=== PATIENT | female | born 1930 | race Caucasian/White ===

== ENCOUNTER 2018-05-02 15:27 | Inpatient (IN) | payer MEDICARE ==
[~2018-05-02] VITALS: Ht 149.9 cm; Wt 63.6 kg
--- NOTE | ~2018-05-02 | PN ---
PATIENT:RAZIA HUERTA MEDICAL RECORD: [id number] LOCATION:[facility] ADMISSION DATE: 05/02/18 PROGRESS NOTE DATE OF SERVICE: 05/06/2018 SUBJECTIVE: The patient's case was discussed with staff. She has no new complaint. OBJECTIVE: The patient was tested by Dr. Lisa Vaughn and found to have a severe level of impairment scoring a total of 4/30 points. This obviously is quite severe. She is completely incapable of living alone or even semi-independently and in my opinion, she requires 24 hours a day supervision. She is going to be monitored with her current medications. ASSESSMENT: No change in diagnoses. PLAN: Current medicines have been reviewed. I am going to start her on Namenda for its cognitive enhancing properties. TRANSINT:[id number] Voice Confirmation ID: [id number] DOCUMENT ID: [id number] FELICIANO CLEMENTE MD at 1236 CC: [id number] DICTATION DATE: 05/06/18 1315 SHIRT FINISHER: 05/06/18 1352 ADM IN [place] [id number] [place] [id number]
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
--- NOTE | ~2018-05-02 | PN ---
PATIENT:RAZIA HUERTA MEDICAL RECORD: [id number] LOCATION:[facility] ADMISSION DATE: 05/02/18 PROGRESS NOTE DATE OF SERVICE: 05/07/2018 SUBJECTIVE: The patient's case was discussed with staff. She has no new complaint. OBJECTIVE: The patient denies intent to harm herself or others. She generally tolerates her medicines well. ASSESSMENT: No change in diagnoses. PLAN: Brief supportive and educational interventions were made. The patient's long-term prognosis is guarded. She has had some paranoid thoughts reported to me. She denies them when I asked about them, but they are being reported by multiple very reliable staff people. Based on this, I am going to start her on a low dose of the antipsychotic medication Trilafon. Her long-term prognosis is guarded. TRANSINT:[id number] Voice Confirmation ID: [id number] DOCUMENT ID: [id number] FELICIANO CLEMENTE MD at 1332 CC: [id number] DICTATION DATE: 05/07/18 1302 PARKING METER ATTENDANT: 05/07/18 1355 ADM IN [facility] [address] [place] [address]
--- NOTE | ~2018-05-02 | PN ---
PATIENT:RAZIA HUETRA MEDICAL RECORD: [id number] LOCATION:[facility]112 ADMISSION DATE: 05/02/18 PROGRESS NOTE DATE OF SERVICE: 05/09/2018 SUBJECTIVE: The patient's case was discussed with staff. She has no new complaint. OBJECTIVE: The patient is in good behavioral control with limited insight about her condition. She tolerates her medicines well. ASSESSMENT: No change in diagnoses. PLAN: Brief supportive and educational interventions were made. I have reviewed the patient's medications, which I will maintain. I anticipate she can be transitioned out of the hospital soon. TRANSINT:[id number] Voice Confirmation ID: [id number] DOCUMENT ID: [id number] FELICIANO CLEMENTE MD at 0908 CC: [id number] DICTATION DATE: 05/09/18 1551 LEADERSHIP DEVELOPMENT INSTRUCTOR: 05/09/18 1622 ADM IN [place] [id number] [place] [id number]
--- NOTE | ~2018-05-02 | PN ---
PATIENT:RAZIA HUERTA MEDICAL RECORD: [id number] LOCATION:[facility]112 ADMISSION DATE: 05/02/18 PROGRESS NOTE DATE OF SERVICE: 05/08/2018 SUBJECTIVE: The patient's case was discussed with staff. She has no new complaint. OBJECTIVE: The patient is in good behavioral control with limited insight about her condition. She generally tolerates her medicines well. ASSESSMENT: No change in diagnoses. PLAN: Current medicines have been reviewed and will be maintained. Long-term prognosis is guarded. TRANSINT:[id number] Voice Confirmation ID: [id number] DOCUMENT ID: [id number] FELICIANO CLEMENTE MD at 1521 CC: [id number] DICTATION DATE: 05/08/18 1402 INTEGRATION SOFTWARE DEVELOPER: 05/08/18 1459 ADM IN [place] [id number] [place] [address]
--- NOTE | ~2018-05-02 | PSY ---
PATIENT NAME:RAZIA HUERTA MEDICAL RECORD: [id number] : [birth year] LOCATION:[facility]6 ADMISSION DATE: 05/02/18 ACCOUNT: [id number] PSYCHIATRIC EVALUATION DATE OF EVALUATION: 05/03/18 IDENTIFYING DATA: The patient is 87 years old and she is admitted to the hospital on a voluntary basis. CHIEF COMPLAINT: Confusion. HISTORY OF PRESENT ILLNESS: The patient is a very nice elderly woman with a history of dementia. She was admitted here through the Emergency Department complaining of her family wanting to take all of her money and she was saying that she was going to kill herself and that she would do so by taking an overdose. She apparently required multiple staff members to calm and restrain her while she was medicated. It is not that she is so strong at 87, it is just that she was so out of control, they did not want her to hurt herself or be hurt and being restrained in the Emergency Department. The patient has a history of psychiatric problems, but it has been limited to mental health and associated with a previous hospitalization here 4 years ago. At that time, the patient was admitted because of depression and she was having suicidal thoughts at that time as well. PAST MEDICAL HISTORY: Significant for diabetes, hypercholesterolemia, and hypertension. PAST PSYCHIATRIC HISTORY: Significant for one previous hospitalization here a few years ago. The patient has no history of drug or alcohol abuse. She has had outpatient treatment for depression. ALLERGIES: MORPHINE. CURRENT MEDICATIONS: Include Glucophage, Lopid, and Norvasc. SOCIAL HISTORY: The patient is . She does have an adult son involved with her care. She has no history of drug or alcohol abuse and functioned reasonably well socially and occupationally. MENTAL STATUS EXAMINATION: The patient is awake, alert, and oriented to person and place, but not to time or situation. Her mood is anxious. Her affect is constricted. Thought processes are circumstantial. Memory, concentration, and abstraction abilities are moderately impaired and she denies any overt thoughts of harming herself or others as well as psychotic symptoms. ASSETS: Supportive family members. LIABILITIES: Limited insight. DIAGNOSTIC IMPRESSION: AXIS I: Senile dementia of the Alzheimer's type with behavioral disturbances. Major depression, moderate severity, recurrent. AXIS II: Deferred. AXIS III: Diabetes and hyperlipidemia. AXIS IV: Moderate stressors. AXIS V: Global assessment of functioning is 35. PLAN: At this time, the patient is admitted to the hospital for a comprehensive medical, psychological, and social evaluation. She will be treated with both mood stabilizing and memory enhancing medications. Her long-term prognosis is guarded. TRANSINT:[id number] Voice Confirmation ID: [id number] DOCUMENT ID: [id number] FELICIANO CLEMENTE MD at 2007 CC: [id number] DICTATION DATE: 05/03/18 1156 ENVELOPE FOLD OPERATOR: 05/03/18 1544 ADM IN [place] [id number] [place] [id number]
--- NOTE | ~2018-05-02 | PN ---
PATIENT:RAZIA HUERTA MEDICAL RECORD: [id number] LOCATION:[facility]112 ADMISSION DATE: 05/02/18 PROGRESS NOTE DATE OF SERVICE: 05/12/2018 SUBJECTIVE: The patient's case was discussed with staff. She has no new complaint. OBJECTIVE: The patient is in good behavioral control with limited insight about her condition. She tolerates her medicines well. ASSESSMENT: No change in diagnoses. PLAN: Current medicines have been reviewed and will be maintained. Her long-term prognosis is guarded. TRANSINT:[id number] Voice Confirmation ID: [id number] DOCUMENT ID: [id number] FELICIANO CLEMENTE MD at 1433 CC: [id number] DICTATION DATE: 05/12/18 1433 WOOD ENGRAVER: 05/12/18 1451 ADM IN [place] [id number] [place] [address]
--- NOTE | ~2018-05-02 | PN ---
PATIENT:RAZIA HUERTA MEDICAL RECORD: [id number] LOCATION:[facility]112 ADMISSION DATE: 05/02/18 PROGRESS NOTE DATE OF SERVICE: 05/05/2018 SUBJECTIVE: The patient's case was discussed with staff. She has no new complaint. OBJECTIVE: The patient is in good behavioral control with limited insight about her condition. She tolerates her medicines well. She is severely impaired cognitively and has had no suicidal threats. ASSESSMENT: No change in diagnoses. PLAN: The patient is sleeping more than I would like. I am going to reduce her Klonopin from 0.25 mg twice daily to 0.25 mg at bedtime. TRANSINT:[id number] Voice Confirmation ID: [id number] DOCUMENT ID: [id number] FELICIANO CLEMENTE MD at 1236 CC: [id number] DICTATION DATE: 05/05/18 1435 FACULTY NEUROPSYCHOLOGIST: 05/05/18 1627 ADM IN [place] [id number] [place] [address]
--- NOTE | ~2018-05-02 | PN ---
PATIENT:RAZIA HUERTA MEDICAL RECORD: [id number] LOCATION:[facility]112 ADMISSION DATE: 05/02/18 PROGRESS NOTE DATE OF SERVICE: 05/10/2018 SUBJECTIVE: The patient's case was discussed with staff. She has no new complaint. OBJECTIVE: The patient is in good behavioral control with limited insight about her condition. ASSESSMENT: No change in diagnoses. PLAN: Brief supportive and educational interventions were made. Long-term prognosis is guarded. TRANSINT:[id number] Voice Confirmation ID: [id number] DOCUMENT ID: [id number] FELICIANO CLEMENTE MD at 1433 CC: [id number] DICTATION DATE: 05/10/18926 WATER TAXI BOAT MATE: 05/10/18 0937 ADM IN [place] [id number] [place] [id number]
--- NOTE | ~2018-05-02 | PN ---
PATIENT:RAZIA HUERTA MEDICAL RECORD: [id number] LOCATION:[facility]112 ADMISSION DATE: 05/02/18 PROGRESS NOTE DATE OF SERVICE: 05/04/2018 SUBJECTIVE: The patient's case was discussed with staff. She has no new complaint. OBJECTIVE: The patient is in good behavioral control with limited insight about her condition. She tolerates her medicines well. ASSESSMENT: No change in diagnoses. PLAN: Brief supportive and educational interventions were made. Long-term prognosis is guarded. TRANSINT:[id number] Voice Confirmation ID: [id number] DOCUMENT ID: [id number] FELICIANO CLEMENTE MD at 1407 CC: [id number] DICTATION DATE: 05/04/18 1131 CUSHION PADDER: 05/04/18 1436 ADM IN [place] [id number] [place] [address]
--- NOTE | ~2018-05-02 | PN ---
PATIENT:RAZIA HUERTA MEDICAL RECORD: [id number] LOCATION:[facility]112 ADMISSION DATE: 05/02/18 PROGRESS NOTE DATE OF SERVICE: 05/13/2018 SUBJECTIVE: The patient's case was discussed with staff. She has no new complaint. OBJECTIVE: The patient denies intent to harm herself or others. Generally tolerates her medicines well. Eye contact is fair. ASSESSMENT: No change in diagnoses. PLAN: Current medicines and therapies have been reviewed and will be maintained. Long-term prognosis is guarded. I anticipate she can be transitioned out of the hospital today. TRANSINT:[id number] Voice Confirmation ID: [id number] DOCUMENT ID: [id number] FELICIANO CLEMENTE MD at 1348 CC: [id number] DICTATION DATE: 05/13/18 1456 FOOD AND NUTRITION PROFESSOR: 05/13/18 1612 DIS IN 05/13/18 [facility] [address] [place] [address]
[~2018-05-02 15:27] MED LIST: ARICEPT10 MG PO; ATIVAN1 MG PO; BAYER CHEWABLE81 MG PO; BUMEX 1 MG TAB1 MG PO; DESERYL100 MG PO; DEXILANT60 MG PO; GLUCOPHAGE500 MG PO; MAG-OX 400 MG400 MG PO; MELATONIN 3 MG1 TAB PO; MIRALAX17 GM PO; NAMENDA5 MG PO; PROTONIX40 MG PO; PROZAC40 MG PO; VITAMIN D31000 UNIT
[2018-05-02 16:13] LABS: BASOPHILS 0.1 % (0-2); EOSINOPHILS 0.6 % (0-7); HEMATOCRIT 40.8 % (36.0-48.0); HEMOGLOBIN 13.6 g/dL (12-16); IMMATURE GRANULOCYTES 0.1 % (0-5); LYMPHOCYTES 25.1 % (15-50); MCH 29.6 pg (26.0-34.0); MCHC 33.3 g/dL (31.0-37.0); MCV 88.9 fL (80.0-100.0); MEAN PLATELET VOLUME 10.1 fL (7.4-10.4); NEUTROPHILS 60.1 % (40-80); PLATELET COUNT 257 10x3/uL (130-400); RBC 4.59 10x6/uL (4.00-5.40); WBC 6.9 10x3/uL (4.8-10.8)
[2018-05-02 16:26] LABS: ALBUMIN 3.5 g/dL (3.4-5.0); ANION GAP 13.6 mmol/L (8-16); BILIRUBIN - TOTAL 0.3 mg/dL (0.2-1.3); CALCIUM 9.3 mg/dL (8.5-10.1); CARBON DIOXIDE 26.6 mmol/L (21.0-32.0); CREATININE - SERUM 0.8 mg/dL (0.6-1.3); POTASSIUM - SERUM 4.2 mmol/L (3.5-5.1); PROTEIN - SERUM 7.5 g/dL (6.4-8.2)
[2018-05-02 16:56] LABS: UDS - AMPHET NEGATIVE QUAL (NEGATIVE); UDS - BARB NEGATIVE QUAL (NEGATIVE); UDS - BENZO NEGATIVE QUAL (NEGATIVE); UDS - COCAINE NEGATIVE QUAL (NEGATIVE); UDS - OPIATE NEGATIVE QUAL (NEGATIVE); UDS - PCP NEGATIVE QUAL (NEGATIVE); UDS - THC NEGATIVE QUAL (NEGATIVE)
[2018-05-02 16:59] LABS: KETONE - SERUM NEGATIVE (NEGATIVE)
[2018-05-02 17:32] LABS: MAGNESIUM - SERUM 2.3 mg/dL (1.8-2.4)
[2018-05-02 18:23] LABS: CHOL - HDL RATIO 3.1 ratio (2.3-4.1); LDL-HDL RATIO 1.9 ratio (1.5-3.5)
[2018-05-02] MEDS ORDERED: NORVASC10 MG PO (18:51)
[2018-05-02] MEDS ORDERED: LOPID600 MG PO (18:52)
[2018-05-02] MEDS ORDERED: NAMENDA10 MG/5 ML PO (18:53)
[2018-05-02 19:30] VITALS: BP 132/75
[2018-05-02 20:37] LABS: APPEARANCE CLEAR (CLEAR); BILIRUBIN NEGATIVE (NEGATIVE); COLOR YELLOW (YELLOW); GLUCOSE NEGATIVE (NEGATIVE); KETONE NEGATIVE (NEGATIVE); NITRITE NEGATIVE (NEGATIVE); PROTEIN NEGATIVE (NEGATIVE); SPECIFIC GRAVITY 1.015 (1.005-1.020); UROBILINOGEN NORMAL (NORMAL)
[2018-05-02 20:38] LABS: WHITE CELLS - URINE 0-5 /hpf (0-5)
[2018-05-02 20:39] LABS: BACTERIA FEW /hpf (NONE SEEN); EPITHELIAL CELLS 0-5 /hpf (0-5)
[2018-05-03 06:18] VITALS: BP 145/74; BMI 28.3
[2018-05-03 10:34] VITALS: BP 152/76
[2018-05-03 11:29] VITALS: BMI 28.2
[2018-05-03 20:46] VITALS: BP 163/82
[2018-05-04 07:00] VITALS: BP 126/76
[2018-05-04 18:45] VITALS: BP 117/55
[2018-05-05 07:00] VITALS: BP 131/69
[2018-05-05 20:31] VITALS: BP 135/82
[2018-05-06 09:40] VITALS: BP 161/83
[2018-05-06 10:13] VITALS: Ht 149.9 cm; Wt 63.6 kg
[2018-05-06 22:01] VITALS: BP 118/88
[2018-05-07 09:05] VITALS: BP 135/77
[2018-05-07 21:21] VITALS: BP 155/71
[2018-05-08 08:06] VITALS: BP 116/73
[2018-05-08 19:19] VITALS: BP 128/64
[2018-05-09 09:11] VITALS: BP 142/83
[2018-05-09 19:11] VITALS: BP 160/70
[2018-05-10 07:48] VITALS: BP 117/77
[2018-05-10 19:50] VITALS: BP 132/69
[2018-05-11 07:00] VITALS: BP 149/71
[2018-05-11 20:16] VITALS: BP 124/56
[2018-05-11 21:58] VITALS: BP 124/56
[2018-05-12 07:23] VITALS: BP 136/79
[2018-05-12] MEDS ORDERED: EFFEXOR37.5 MG PO (14:15)
[2018-05-12] MEDS ORDERED: PERPHENAZINE2 MG PO (14:15)
[2018-05-12] MEDS ORDERED: VITAMIN D5000 UNIT PO (14:16)
[2018-05-12 19:43] VITALS: BP 185/84
[2018-05-13 09:33] VITALS: BP 139/72
[2018-05-13] MEDS ORDERED: VITAMIN D31000 UNI2 PO (22:36)
== END 2018-05-13 17:00 | DRG 57 ==
LOC: D.ER 15:27 → D.PSYCH 17:38
PROVIDERS: Emergency Medicine; Physician Assistant Medical; Psychiatry & Neurology Psychiatry
DX: G30.1 Alzheimer's disease with late onset (principal); F02.81 Dementia in other diseases classified elsewhere, unspecified severity, with behavioral disturbance; F33.1 Major depressive disorder, recurrent, moderate; F41.9 Anxiety disorder, unspecified; E11.9 Type 2 diabetes mellitus without complications; E78.5 Hyperlipidemia, unspecified; R26.9 Unspecified abnormalities of gait and mobility; E55.9 Vitamin D deficiency, unspecified; I10 Essential (primary) hypertension; Z74.09 Other reduced mobility

== ENCOUNTER 2018-05-13 22:23 | Inpatient (IN) | payer MEDICARE, MEDICAID ==
--- NOTE | ~2018-05-13 | PN ---
PATIENT:RAZIA HUERTA MEDICAL RECORD: [id number] LOCATION:[facility]112 ADMISSION DATE: 05/13/18 PROGRESS NOTE DATE OF SERVICE: 05/20/2018 SUBJECTIVE: No new complaint. OBJECTIVE: The patient has been relatively stable. She is taking medication as prescribed. She is due for discharge tomorrow. On exam, mood is slightly irritable. Affect is somewhat brittle. Speech is repetitive. Content of thought shows no overt psychosis. No evidence of suicidality whatsoever. Sensorium shows no change. ASSESSMENT: No change in diagnosis. PLAN: 1. Continue present medication. 2. Continue supportive therapy. TRANSINT:[id number] Voice Confirmation ID: [id number] DOCUMENT ID: [id number] SARKIS SILVERIO III, MD at 1019 CC: [id number] DICTATION DATE: 05/20/18 1148 ANGLE BENDER: 05/20/18 1201 ADM IN [place] [id number] [place] [address]
--- NOTE | ~2018-05-13 | DS ---
PATIENT:RAZIA HUERTA :[birth year] MEDICAL RECORD: [id number] DISCHARGE SUMMARY ADMISSION DATE: 05/13/18 DISCHARGE DATE: 05/21/18 DATE OF ADMISSION: 05/13/2018 DATE OF DISCHARGE: 05/21/2018 HISTORY OF PRESENT ILLNESS: An 87-year-old white female readmitted just 1 day after discharge. The patient had been admitted to [facility] between 05/03/2018 and 05/13/2018. Originally, she had been admitted because of paranoia and making suicidal statements. The patient was eventually placed at a local [facility]. She was diagnosed with Alzheimer's dementia as confirmed by neuropsychological testing. On the day of discharge, the patient began claiming that she was suicidal again and was readmitted. For further details, please see previously dictated history. COURSE IN THE HOSPITAL: The patient was seen in consultation by Dr. Bob. She noted the presence of diabetes, hypertension, hyperlipidemia. The patient was started on Lexapro 5 mg daily for depressive symptoms. She was given perphenazine 2 mg b.i.d. to control agitation. Also, Namenda 10 mg b.i.d., vitamin D, Norvasc, Glucophage, Lopid and Kenalog topical. The patient was stable throughout hospitalization. She did show some lability of affect and inappropriate statements from [id number] consistent with her dementia. She did not give evidence of further suicidality at all. By the time of discharge, she was stable enough to return to the [facility] environment. Again, she was not suicidal. FINAL DIAGNOSES: AXIS I: Alzheimer's dementia with behavioral disturbance. AXIS II: Cluster B traits. AXIS III: Diabetes, hypertension and hyperlipidemia. AXIS IV: Moderate. AXIS V: 40. PLAN: 1. The patient was discharged on current medication. 2. Diet and activities as tolerated. 3. Follow up through primary care physician at the [facility]. TRANSINT:[id number] Voice Confirmation ID: [id number] DOCUMENT ID: [id number] SARKIS SILVERIO III, MD at 1829 CC: [id number] DICTATION DATE: 05/21/18 1108 FISH FARMER: 05/21/18 1219 DIS IN 05/21/18 [place] [id number] [place] [address]
--- NOTE | ~2018-05-13 | PN ---
PATIENT:RAZIA HUERTA MEDICAL RECORD: [id number] LOCATION:[facility]112 ADMISSION DATE: 05/13/18 PROGRESS NOTE DATE OF SERVICE: 05/15/2018 SUBJECTIVE: The patient states "I am not a patient I am a prisoner." OBJECTIVE: The patient has been stating repeatedly that she wants to go home. She is upset with her family. She was informed again that she will not be returning home, but will be returning to rehabilitation. The patient stated that she would not cooperate for that. Overall the patient has been more anxious. On exam, mood is irritable. Affect is brittle. Speech is terse. Content of thought is positive for paranoid ideation, especially directed at her family. Sensorium shows no improvement. ASSESSMENT: No change in diagnosis. PLAN: 1. We will discontinue Effexor and change to Lexapro 5 mg daily. 2. Increase perphenazine to 2 mg b.i.d. 3. Maintain other medications and supportive therapy. TRANSINT:[id number] Voice Confirmation ID: [id number] DOCUMENT ID: [id number] SARKIS SILVERIO III, MD at 0511 CC: [id number] DICTATION DATE: 05/15/18 1051 TELEPHONE MAINTAINER: 05/15/18 1102 ADM IN [place] [address] [place] [address]
--- NOTE | ~2018-05-13 | PN ---
PATIENT:RAZIA HUERTA MEDICAL RECORD: [id number] LOCATION:[facility]I Thomson112 ADMISSION DATE: 05/13/18 PROGRESS NOTE DATE OF SERVICE: 05/16/2018 SUBJECTIVE: No new complaint. OBJECTIVE: The patient met with family and staff yesterday. She stated yesterday that she is willing to return to rehab, but unfortunately the patient has changed her story on this numerous times. She is taking medications as prescribed. On exam, mood is slightly irritable. Affect is very shallow. Speech tends to be terse. Content of thought shows some moderate paranoid ideation. Sensorium shows no change. ASSESSMENT: No change in diagnosis. PLAN: 1. Maintain current medication. 2. Continue supportive therapy. TRANSINT:[id number] Voice Confirmation ID: [id number] DOCUMENT ID: [id number] SARKIS SILVEIRO III, MD at 0553 CC: [id number] DICTATION DATE: 05/16/18 142 ASSEMBLY MACHINE TENDER: 05/16/18 1446 ADM IN [place] [id number] [place] [id number]
--- NOTE | ~2018-05-13 | PN ---
PATIENT:RAZIA HUERTA MEDICAL RECORD: [id number] LOCATION:MELI [facility]112 ADMISSION DATE: 05/13/18 PROGRESS NOTE DATE OF SERVICE: 05/19/2018 SUBJECTIVE: No new complaint. OBJECTIVE: The patient has been stable over the weekend. No further evidence of any suicidal ideation. She is taking medications as prescribed. On exam, mood is for the most part euthymic. Affect remains rather shallow. Speech is terse. Content of thought is negative for psychosis or suicidality. Sensorium unchanged. ASSESSMENT: No change in diagnosis. PLAN: 1. Continue current medication. 2. Continue supportive therapy. TRANSINT:[id number] Voice Confirmation ID: [id number] DOCUMENT ID: [id number] SARKIS SILVERIO III, MD at 1133 CC: [id number] DICTATION DATE: 05/19/18 1243 HAND MITER OPERATOR: 05/19/18 1407 ADM IN [facility] [address] [place] [address]
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
[~2018-05-13 22:23] MED LIST changes: +EFFEXOR37.5 MG PO; +LOPID600 MG PO; +NAMENDA10 MG/5 ML PO; +NORVASC10 MG PO; +PERPHENAZINE2 MG PO; +VITAMIN D5000 UNIT PO
[2018-05-13] MEDS ORDERED: VITAMIN D31000 UNI2 PO (22:36)
[2018-05-13 22:53] VITALS: BP 153/76; BMI 32.8
[2018-05-14 07:50] LABS: BASOPHILS 0.4 % (0-2); EOSINOPHILS 1.2 % (0-7); HEMATOCRIT 42.8 % (36.0-48.0); HEMOGLOBIN 14.1 g/dL (12-16); IMMATURE GRANULOCYTES 0.4 % (0-5); LYMPHOCYTES 21.3 % (15-50); MCH 29.7 pg (26.0-34.0); MCHC 32.9 g/dL (31.0-37.0); MCV 90.1 fL (80.0-100.0); MEAN PLATELET VOLUME 9.9 fL (7.4-10.4); NEUTROPHILS 62.7 % (40-80); PLATELET COUNT 285 10x3/uL (130-400); RBC 4.75 10x6/uL (4.00-5.40); RDW 13.9 % (11.5-14.5); WBC 5.6 10x3/uL (4.8-10.8)
[2018-05-14 08:27] LABS: ALBUMIN 3.5 g/dL (3.4-5.0); ALKALINE PHOSPHATASE 148 U/L (46-116); ALT (SGPT) 32 U/L (10-68); CALC OSMOLALITY 287 mosm/kg (275-300); CALCIUM 9.5 mg/dL (8.5-10.1); CARBON DIOXIDE 27.8 mmol/L (21.0-32.0); CHLORIDE - SERUM 106 mmol/L (98-107); CHOL - HDL RATIO 2.4 ratio (2.3-4.1); CHOLESTEROL, TOTAL 193 mg/dL (0-200); CREATININE - SERUM 0.7 mg/dL (0.6-1.3); GLUCOSE 114 mg/dL (74-106); HDL CHOLESTEROL 82 mg/dL (32-96); LDL CHOLESTEROL 103 mg/dL (0-100); LDL-HDL RATIO 1.3 ratio (1.5-3.5); POTASSIUM - SERUM 3.7 mmol/L (3.5-5.1); PROTEIN - SERUM 7.5 g/dL (6.4-8.2); SODIUM 143 mmol/L (136-145); THYROID STIMULATING HORMONE 0.54 uIU/mL (0.36-3.74); TRIGLYCERIDE 40 mg/dL (30-200); UREA NITROGEN 17 mg/dL (7-18); eGFR NON AFRICAN AMERICAN 83 mL/min (90-120)
[2018-05-14 08:52] VITALS: BMI 32.9
[2018-05-14 11:57] VITALS: BP 154/90
[2018-05-14 14:41] VITALS: Wt 73.7 kg
[2018-05-14 19:45] VITALS: BP 151/82
[2018-05-15 07:30] VITALS: BP 141/92
[2018-05-15 07:33] LABS: RAPID PLASMA REAGIN Non Reactive (Non Reactive)
[2018-05-15 08:21] LABS: FOLATE (FOLIC ACID) - SERUM >20.0 ng/mL (>3.0); VITAMIN D 25 HYDROXY 39.8 ng/mL (30.0-100.0)
[2018-05-15 19:24] VITALS: BP 161/80
[2018-05-16 08:12] VITALS: BP 183/98
[2018-05-16 19:41] VITALS: BP 157/68
[2018-05-17 08:03] VITALS: BP 166/82
[2018-05-17 19:09] VITALS: BP 160/71
[2018-05-18 08:24] VITALS: BP 137/84
[2018-05-18 19:09] VITALS: BP 146/64
[2018-05-19 10:28] VITALS: BP 133/76; BP 186/83
[2018-05-19 20:21] VITALS: BP 156/63
[2018-05-20 10:15] VITALS: BP 118/68
[2018-05-20] MEDS ORDERED: LEXAPRO10 MG PO (11:36)
[2018-05-20] MEDS ORDERED: PERPHENAZINE2 MG PO (11:36)
[2018-05-20] MEDS ORDERED: NAMENDA5 MG PO (11:36)
[2018-05-20 19:38] VITALS: BP 167/77
[2018-05-21 08:31] VITALS: BP 128/74
== END 2018-05-21 14:30 | DRG 57 ==
LOC: D.PSYCH 22:23
PROVIDERS: Psychiatry & Neurology Psychiatry
DX: G30.9 Alzheimer's disease, unspecified (principal); F02.81 Dementia in other diseases classified elsewhere, unspecified severity, with behavioral disturbance; R45.851 Suicidal ideations; F60.9 Personality disorder, unspecified; E11.9 Type 2 diabetes mellitus without complications; I10 Essential (primary) hypertension; E78.5 Hyperlipidemia, unspecified; F32.9 Major depressive disorder, single episode, unspecified; F41.9 Anxiety disorder, unspecified; Z74.09 Other reduced mobility; E55.9 Vitamin D deficiency, unspecified; F22 Delusional disorders; K12.1 Other forms of stomatitis

== ENCOUNTER 2018-11-13 14:16 | Inpatient (IN) | payer MEDICARE, MEDICAID ==
[~2018-11-13] VITALS: Ht 160 cm; Wt 68.0 kg
[~2018-11-13 14:16] MED LIST changes: +LEXAPRO10 MG PO; +VITAMIN D31000 UNI2 PO
[2018-11-13] MEDS ORDERED: ASPIRIN81 MG PO (15:23)
[2018-11-13] MEDS ORDERED: BUSPAR5 MG PO (15:23)
[2018-11-13 15:49] LABS: APPEARANCE CLEAR (CLEAR); BILIRUBIN NEGATIVE (NEGATIVE); COLOR STRAW (YELLOW); GLUCOSE NEGATIVE (NEGATIVE); KETONE NEGATIVE (NEGATIVE); NITRITE NEGATIVE (NEGATIVE); PROTEIN NEGATIVE (NEGATIVE); SPECIFIC GRAVITY 1.005 (1.005-1.020); UROBILINOGEN NORMAL (NORMAL)
[2018-11-13 15:55] VITALS: BP 130/63; BMI 28.4
[2018-11-13 16:31] LABS: BASOPHILS 0.3 % (0-2); EOSINOPHILS 1.6 % (0-7); HEMATOCRIT 40.8 % (36.0-48.0); HEMOGLOBIN 13.2 g/dL (12-16); IMMATURE GRANULOCYTES 0.3 % (0-5); LYMPHOCYTES 27.2 % (15-50); MCH 28.6 pg (26.0-34.0); MCHC 32.4 g/dL (31.0-37.0); MCV 88.3 fL (80.0-100.0); MEAN PLATELET VOLUME 10.5 fL (7.4-10.4); MONOCYTES 15.7 % (2-11); NEUTROPHILS 54.9 % (40-80); PLATELET COUNT 268 10x3/uL (130-400); RBC 4.62 10x6/uL (4.00-5.40); WBC 6.7 10x3/uL (4.8-10.8)
[2018-11-13 16:42] LABS: CHOL - HDL RATIO 2.9 ratio (2.3-4.1); LDL-HDL RATIO 1.6 ratio (1.5-3.5)
[2018-11-13 17:10] LABS: ALBUMIN 3.6 g/dL (3.4-5.0); ANION GAP 16.6 mmol/L (8-16); BILIRUBIN - TOTAL 0.19 mg/dL (0.2-1.3); CALCIUM 9.2 mg/dL (8.5-10.1); CARBON DIOXIDE 26.5 mmol/L (21.0-32.0); CREATININE - SERUM 0.8 mg/dL (0.6-1.3); POTASSIUM - SERUM 4.1 mmol/L (3.5-5.1); PROTEIN - SERUM 7.9 g/dL (6.4-8.2); THYROID STIMULATING HORMONE 0.64 uIU/mL (0.36-3.74)
[2018-11-13 20:00] VITALS: BP 139/84
[2018-11-14 07:43] VITALS: Ht 160 cm; Wt 68.0 kg
[2018-11-14 09:43] VITALS: BP 178/71
[2018-11-14 10:02] VITALS: BP 178/71
[2018-11-14 11:16] VITALS: BP 178/71
[2018-11-14 20:08] VITALS: BP 173/66
[2018-11-15 07:24] LABS: FOLATE (FOLIC ACID) - SERUM 15.8 ng/mL (>3.0); RAPID PLASMA REAGIN Non Reactive (Non Reactive)
[2018-11-15 08:40] VITALS: BP 156/72
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
[2018-11-15 19:49] VITALS: BP 151/62
[2018-11-16 07:00] VITALS: BP 147/77
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
[2018-11-16 20:27] VITALS: BP 94/55
[2018-11-17 07:00] VITALS: BP 142/77
--- NOTE | 2018-11-17 13:53 | PN ---
PATIENT:RAZIA HUERTA MEDICAL RECORD: [id number] LOCATION:[facility]112 ADMISSION DATE: 11/13/18 PROGRESS NOTE DATE OF SERVICE: 11/16/2018 SUBJECTIVE: The patient's case was discussed with staff. She has no new complaint. OBJECTIVE: The patient is depressed and says she wants to . She told this to the nurse earlier today and when I asked her about it today, she repeated it. When asked if she had a plan, she also said yes, but is not willing to tell me about it. ASSESSMENT: No change in diagnoses. PLAN: I am going to start the patient on Lexapro for its antidepressant effect. She will be monitored for clinical changes associated with its use. Her long-term prognosis is guarded. TRANSINT:[id number] Voice Confirmation ID: [id number] DOCUMENT ID: [id number] FELICIANO CLEMENTE MD at 1353 CC: [id number] DICTATION DATE: 11/16/18 1140 SIGNALS COLLECTOR/ANALYST: 11/16/18 1210 ADM IN [address] [id number] [place] [address]
[2018-11-17 23:50] VITALS: BP 142/76
[2018-11-18 08:00] VITALS: BP 125/68
--- NOTE | 2018-11-18 09:45 | PN ---
PATIENT:RAZIA HUERTA MEDICAL RECORD: [id number] LOCATION:C[facility] Thomson112 ADMISSION DATE: 11/13/18 PROGRESS NOTE DATE OF SERVICE: 11/17/2018 SUBJECTIVE: The patient's case was discussed with staff. She has no new complaint. OBJECTIVE: The patient has fairly limited insight about her condition and continues to make depressive statements stating that she wants to . ASSESSMENT: No change in diagnoses. PLAN: The patient's Lexapro is going to be increased to 10 mg daily. Her long-term prognosis is guarded. Both supportive and educational interventions were made. TRANSINT:[id number] Voice Confirmation ID: [id number] DOCUMENT ID: [id number] FELICIANO CLEMENTE MD at 0945 CC: [id number] DICTATION DATE: 11/17/18 140 WELDER OXYHYDROGEN: 11/17/18 1512 ADM IN [facility] [address] [place] [address]
[2018-11-18 19:45] VITALS: BP 145/63
--- NOTE | 2018-11-19 09:10 | PN ---
PATIENT:RAZIA HUERTA MEDICAL RECORD: [id number] LOCATION:PmaRalphRENUKA Thomson112 ADMISSION DATE: 11/13/18 PROGRESS NOTE DATE OF SERVICE: 11/18/2018 SUBJECTIVE: The patient's case was discussed with staff. She has no new complaint. OBJECTIVE: The patient is in good behavioral control with limited insight about her condition. She does tolerate her medicines well. Eye contact is fair. ASSESSMENT: No change in diagnoses. PLAN: Current medicines have been reviewed and will be maintained. The patient's family is trying to move her to a different fdc and hopefully that will occur in the next few days. If so and this level of improvement is sustained, I think it would be reasonable to transition her out of the hospital then. TRANSINT:[id number] Voice Confirmation ID: [id number] DOCUMENT ID: [id number] FELICIANO CLEMENTE MD at 0910 CC: [id number] DICTATION DATE: 11/18/18 1035 HOSPITAL NURSE LIAISON: 11/18/18 1211 ADM IN [place] [id number] [place] [address]
[2018-11-19 10:18] VITALS: BP 126/66
[2018-11-19 19:41] VITALS: BP 149/71
--- NOTE | 2018-11-20 12:29 | PN ---
PATIENT:RAZIA HUERTA MEDICAL RECORD: [id number] LOCATION:PamRalphRENUKA Thomson112 ADMISSION DATE: 11/13/18 PROGRESS NOTE DATE OF SERVICE: 11/19/2018 SUBJECTIVE: The patient's case was discussed with staff. She has no new complaint. OBJECTIVE: The patient made statements yesterday that she wanted to kill herself. She now is minimizing that. ASSESSMENT: No change in diagnoses. PLAN: I do not view the patient as a true suicide risk in that I think that she is going to deliberately set out to harm herself. I think the risk of that is relatively small, but it is more indicative of someone who is confused, frustrated, and has limited coping skills. Nevertheless, I have to take statements like this seriously and will continue to keep her in this environment while it is being addressed. I am going to increase the dose of her Namenda slightly. TRANSINT:[id number] Voice Confirmation ID: [id number] DOCUMENT ID: [id number] FELICIANO CLEMENTE MD at 1229 CC: [id number] DICTATION DATE: 11/19/18922 CORE MAKER: 11/19/18 1139 ADM IN [facility] [address] [id number]
[2018-11-20 17:02] VITALS: BP 156/74
[2018-11-20 20:00] VITALS: BP 150/64
[2018-11-21 09:43] VITALS: BP 125/55
--- NOTE | 2018-11-21 12:55 | PN ---
PATIENT:RAZIA HUERTA MEDICAL RECORD: [id number] LOCATION:MLEI Thomson112 ADMISSION DATE: 11/13/18 PROGRESS NOTE DATE OF SERVICE: 11/20/2018 SUBJECTIVE: The patient's case was discussed with staff. She has no new complaint. OBJECTIVE: The patient denies intent to harm herself or others. She is being referred to the [facility] for placement. Her long-term prognosis is guarded. She has not been aggressive here. TRANSINT:[id number] Voice Confirmation ID: [id number] DOCUMENT ID: [id number] FELICIANO CLEMENTE MD at 1255 CC: [id number] DICTATION DATE: 11/20/18 1247 EVALUATION ENGINEER: 11/20/18 1404 ADM IN [place] [id number] [place] [id number]
--- NOTE | 2018-11-22 08:46 | PN ---
PATIENT:RAZIA HUERTA MEDICAL RECORD: [id number] LOCATION:MELI Thomson112 ADMISSION DATE: 11/13/18 PROGRESS NOTE DATE OF SERVICE: 11/21/2018 SUBJECTIVE: The patient's case was discussed with staff. She has no new complaint. OBJECTIVE: The patient denies intent to harm herself or others. She generally is tolerating her medicines well. She has not been aggressive today. She is very disorganized and certainly in need of 82-[id number]-v-day supervision. FPC placement is being sought, but is pending at this point. TRANSINT:[id number] Voice Confirmation ID: [id number] DOCUMENT ID: [id number] FELICIANO CLEMENTE MD at 0846 CC: [id number] DICTATION DATE: 11/21/18 1319 CARDIOLOGY PHYSICIAN ASSISTANT: 11/21/18 1650 ADM IN [place] [id number] [place] [id number]
[2018-11-22 09:51] VITALS: BP 155/66
[2018-11-22 10:10] VITALS: BP 155/66
[2018-11-22 13:36] LABS: COLOR YELLOW (YELLOW)
[2018-11-22 13:37] LABS: APPEARANCE CLOUDY (CLEAR); BILIRUBIN NEGATIVE (NEGATIVE); GLUCOSE NEGATIVE (NEGATIVE); KETONE NEGATIVE (NEGATIVE); NITRITE POSITIVE (NEGATIVE); PROTEIN TRACE mg/dL (NEGATIVE); SPECIFIC GRAVITY 1.025 (1.005-1.020); UROBILINOGEN NORMAL (NORMAL)
[2018-11-22 13:39] LABS: EPITHELIAL CELLS OCC /hpf (0-5); RED CELLS - URINE 0-5 /hpf (0-5); WHITE CELLS - URINE 25-50 /hpf (0-5)
[2018-11-22 13:40] LABS: AMORPHOUS SEDIMENT <1+ /lpf (NONE SEEN); BACTERIA MANY /hpf (NONE SEEN); MUCUS <1+ /lpf (NONE SEEN)
[2018-11-22 19:00] VITALS: BP 148/70
[2018-11-23 07:00] VITALS: BP 146/72
--- NOTE | 2018-11-23 11:30 | PN ---
PATIENT:RAZIA HUERTA MEDICAL RECORD: [id number] LOCATION:MELI Thomson112 ADMISSION DATE: 11/13/18 PROGRESS NOTE DATE OF SERVICE: 11/22/2018 SUBJECTIVE: The patient's case was discussed with staff. She has no new complaint. OBJECTIVE: The patient is in good behavioral control with limited insight about her condition. She tolerates her medicines well. ASSESSMENT: No change in diagnoses. PLAN: Brief supportive and educational interventions were made. I anticipate the patient can be transitioned out of the hospital soon if this level of improvement continues. TRANSINT:[id number] Voice Confirmation ID: [id number] DOCUMENT ID: [id number] FELICIANO CLEMENTE MD at 1130 CC: [id number] DICTATION DATE: 11/22/18 1007 EDGE CUTTING MACHINE OPERATOR: 11/22/18 1158 ADM IN [id number] [place] [address]
[2018-11-23 20:12] VITALS: BP 140/64
[2018-11-24 07:00] VITALS: BP 120/56
--- NOTE | 2018-11-24 09:41 | PN ---
PATIENT:RAZIA HUERTA MEDICAL RECORD: [id number] LOCATION:MELI Thomson112 ADMISSION DATE: 11/13/18 PROGRESS NOTE DATE OF SERVICE: 11/23/2018 SUBJECTIVE: The patient's case was discussed with staff. She has no new complaint. OBJECTIVE: The patient denies intent to harm herself or others. She tolerates her medicines well. ASSESSMENT: No change in diagnoses. PLAN: Current medicines and therapies have been reviewed and will be maintained. Long-term prognosis is guarded. TRANSINT:[id number] Voice Confirmation ID: [id number] DOCUMENT ID: [id number] FELICIANO CLEMENTE MD at 0941 CC: [id number] DICTATION DATE: 11/23/18 1138 RETAIL SALES ASSISTANT: 11/23/18 1533 ADM IN [place] [address] [place] [address]
[2018-11-24 21:59] VITALS: BP 140/70
[2018-11-25 08:00] VITALS: BP 132/60
--- NOTE | 2018-11-25 09:43 | PN ---
PATIENT:RAZIA HUERTA MEDICAL RECORD: [id number] LOCATION:MELI Thomson112 ADMISSION DATE: 11/13/18 PROGRESS NOTE DATE OF SERVICE: 11/24/2018 SUBJECTIVE: The patient's case was discussed with staff. She has no new complaint. OBJECTIVE: The patient is in good behavioral control with limited insight about her condition. She is tolerating her medicines well. ASSESSMENT: No change in diagnoses. PLAN: Current medicines and therapies have been reviewed and will be maintained. Long-term prognosis is guarded. TRANSINT:[id number] Voice Confirmation ID: [id number] DOCUMENT ID: [id number] FELICIANO CLEMENTE MD at 0943 CC: [id number] DICTATION DATE: 11/24/18 1033 LEAD REFINERY SUPERVISOR: 11/24/18 1059 ADM IN [place] [id number] [place] [address]
[2018-11-25 21:00] VITALS: BP 187/67
[2018-11-26 08:00] VITALS: BP 129/65
--- NOTE | 2018-11-26 15:07 | PN ---
PATIENT:RAZIA HUERTA MEDICAL RECORD: [id number] LOCATION:MELI Thomson112 ADMISSION DATE: 11/13/18 PROGRESS NOTE DATE OF SERVICE: 11/25/2018 SUBJECTIVE: The patient's case was discussed with staff. She has no new complaint. OBJECTIVE: The patient is in good behavioral control with limited insight about her condition. She is tolerating her medicines well. ASSESSMENT: No change in diagnoses. PLAN: Supportive and educational interventions were made. Long-term prognosis is guarded. TRANSINT:[id number] Voice Confirmation ID: [id number] DOCUMENT ID: [id number] FELICIANO CLEMENTE MD at 1507 CC: [id number] DICTATION DATE: 11/25/18 0957 REGULATED PROGRAM MANAGER: 11/25/18 1009 ADM IN [place] [id number] [place] [address]
[2018-11-26 19:25] VITALS: BP 165/71
[2018-11-27 10:19] VITALS: BP 124/51
[2018-11-27 14:15] LABS: ANION GAP 14.9 mmol/L (8-16); BILIRUBIN - TOTAL 0.25 mg/dL (0.2-1.3); CALCIUM 8.5 mg/dL (8.5-10.1); CARBON DIOXIDE 25.5 mmol/L (21.0-32.0); CREATININE - SERUM 0.8 mg/dL (0.6-1.3); POTASSIUM - SERUM 3.4 mmol/L (3.5-5.1); PROTEIN - SERUM 6.3 g/dL (6.4-8.2)
--- NOTE | 2018-11-27 14:21 | PN ---
PATIENT:RAZIA HUERTA MEDICAL RECORD: [id number] LOCATION:MELI Thomson112 ADMISSION DATE: 11/13/18 PROGRESS NOTE DATE OF SERVICE: 11/26/2018 SUBJECTIVE: The patient's case was discussed with staff. She has no new complaint. OBJECTIVE: The patient is in good behavioral control with limited insight about her condition. She does tolerate her medicines well. ASSESSMENT: No change in diagnoses. PLAN: Current medicines have been reviewed and will be maintained. Long-term prognosis is guarded. TRANSINT:[id number] Voice Confirmation ID: [id number] DOCUMENT ID: [id number] FELICIANO CLEMENTE MD at 1421 CC: [id number] DICTATION DATE: 11/26/18 1518 ICE MAKER: 11/26/18 1639 ADM IN [facility] [address] [place] [address]
[2018-11-27 20:05] VITALS: BP 125/64
[2018-11-28 08:40] VITALS: BP 127/54
--- NOTE | 2018-11-28 15:29 | PN ---
PATIENT:RAZIA HUERTA MEDICAL RECORD: [id number] LOCATION:MELI Thomson112 ADMISSION DATE: 11/13/18 PROGRESS NOTE DATE OF SERVICE: 11/27/2018 SUBJECTIVE: The patient's case was discussed with staff. She has no new complaint. OBJECTIVE: The patient is very angry and paranoid. She says that her daughter has not left town and gone to [place], but that is not true, she has. I do not know why this would be so critical to her, but she is insisting that this is a lie and related to some sort of conspiracy. She is anna angry, she has had to receive oral dose of Ativan to calm her. ASSESSMENT: No change in diagnoses. PLAN: I have looked at the patient's scheduled medications and I am going to give her a low dose of Trilafon to assist with her thought disorganization. She will be monitored for clinical changes associated with its use. Her long-term prognosis is guarded. TRANSINT:[id number] Voice Confirmation ID: [id number] DOCUMENT ID: [id number] FELICIANO CLEMENTE MD at 1529 CC: [id number] DICTATION DATE: 11/27/18 1437 PROJECT ASSISTANT: 11/27/18 1446 ADM IN [address] [id number] [place] [address]
[2018-11-28 19:46] VITALS: BP 163/68
[2018-11-29 08:00] VITALS: BP 132/69
--- NOTE | 2018-11-29 13:46 | PN ---
PATIENT:RAZIA HUERTA MEDICAL RECORD: [id number] LOCATION:CASSYLuz Thomson112 ADMISSION DATE: 11/13/18 PROGRESS NOTE DATE OF SERVICE: 11/28/2018 SUBJECTIVE: The patient's case was discussed with staff. She has no new complaint. OBJECTIVE: The patient denies intent to harm herself or others. She tolerates her medicines well. She is tearful today, but not wanting to hurt herself. The tearfulness relates to wanting to go to her home and not back to the group home. She apparently does not remember she has been in a group home and gets very upset when corrected. TRANSINT:[id number] Voice Confirmation ID: [id number] DOCUMENT ID: [id number] FELICIANO CLEMENTE MD at 1346 CC: [id number] DICTATION DATE: 11/28/18 1545 SIGN ERECTOR AND REPAIRER: 11/28/18 2321 ADM IN [facility] [address] [place] [address]
[2018-11-29 21:16] VITALS: BP 161/81
[2018-11-30 07:04] LABS: ANION GAP 15.1 mmol/L (8-16); CALCIUM 9.2 mg/dL (8.5-10.1); CARBON DIOXIDE 27.5 mmol/L (21.0-32.0); CREATININE - SERUM 0.8 mg/dL (0.6-1.3); POTASSIUM - SERUM 3.6 mmol/L (3.5-5.1)
[2018-11-30 08:00] VITALS: BP 148/60
--- NOTE | 2018-11-30 11:13 | PN ---
PATIENT:RAZIA HUERTA MEDICAL RECORD: [id number] LOCATION:MELI Thomson112 ADMISSION DATE: 11/13/18 PROGRESS NOTE DATE OF SERVICE: 11/29/2018 SUBJECTIVE: The patient's case was discussed with staff. She has no new complaint. OBJECTIVE: The patient denies intent to harm herself or others. She was quite impaired cognitively. She said yesterday that if she had to go to the residential she was going to kill herself. She now denies that she ever said that. I do not think she is a direct or acute danger despite the things that she said I do think that she is severely impaired because of dementia and probably had an underlying premorbid longstanding cluster B personality style. She is prone to be dramatic, attention seeking, and held projecting. I think it is reasonable to go ahead and discharge her on Saturday unless she shows significant worsening and it is just going to be part of her condition that she will occasionally say things that are dramatic or attention seeking. TRANSINT:[id number] Voice Confirmation ID: [id number] DOCUMENT ID: [id number] FELICIANO CLEMENTE MD at 1113 CC: [id number] DICTATION DATE: 11/29/18 1500 BOX ANNEALER: 11/29/182030 ADM IN [facility] [address] [place] [address]
[2018-11-30] MEDS ORDERED: LEXAPRO10 MG PO (11:15)
[2018-11-30] MEDS ORDERED: K-DUR20 MEQ PO (11:16)
[2018-11-30] MEDS ORDERED: FLORAJEN3 CAPS460 MG PO (11:16)
[2018-11-30] MEDS ORDERED: PERPHENAZINE2 MG PO (11:16)
[2018-11-30] MEDS ORDERED: NAMENDA5 MG PO (11:16)
[2018-11-30] MEDS ORDERED: BUMEX2 MG PO (11:16)
[2018-11-30] MEDS ORDERED: VITAMIN D5000 UNIT PO (11:17)
[2018-11-30] MEDS ORDERED: VITAMIN B-121000 MCG PO (11:17)
[2018-11-30 22:06] VITALS: BP 124/68
[2018-12-01 10:29] VITALS: BP 141/65
--- NOTE | 2018-12-01 13:23 | PN ---
PATIENT:RAZIA HUERTA MEDICAL RECORD: [id number] LOCATION:MELI Thomson112 ADMISSION DATE: 11/13/18 PROGRESS NOTE DATE OF SERVICE: 11/30/2018 SUBJECTIVE: The patient's case was discussed with staff. She has no new complaint. OBJECTIVE: The patient is in good behavioral control with limited insight about her condition. She now tells me she does not want to be discharged from the hospital and she wants to live here. When it is explained to her that she cannot, she becomes angry. ASSESSMENT: No change in diagnoses. PLAN: I am going to transition the patient out of the hospital tomorrow unless she has a dramatic change for the worse. She is certainly demented. 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 Follow up will be with her primary care care home physician. TRANSINT:[id number] Voice Confirmation ID: [id number] DOCUMENT ID: [id number] FELICIANO CLEMENTE MD at 1323 CC: [id number] DICTATION DATE: 11/30/18 1115 PORTFOLIO MANAGEMENT MARKETING: 11/30/18 [address] [facility] [address] [place] [address]
[2018-12-01 20:40] VITALS: BP 148/66
--- NOTE | 2018-12-02 10:58 | PN ---
PATIENT:RAZIA HUERTA MEDICAL RECORD: [id number] LOCATION:MELI Thomson112 ADMISSION DATE: 11/13/18 PROGRESS NOTE DATE OF SERVICE: 12/01/2018 SUBJECTIVE: The patient's case was discussed with staff. She has no new complaint. OBJECTIVE: The patient is in good behavioral control with limited insight about her condition. She is not showing any evidence of acute or direct dangerousness to herself or others. ASSESSMENT: No change in diagnoses. PLAN: Current medicines and therapies have been reviewed and will be maintained. Long-term prognosis is guarded. TRANSINT:[id number] Voice Confirmation ID: [id number] DOCUMENT ID: [id number] FELICIANO CLEMENTE MD at 1058 CC: [id number] DICTATION DATE: 12/01/18 1343 FREIGHT HANDLER: 12/01/18 1713 ADM IN [place] [id number] [place] [id number]
[2018-12-02 11:27] VITALS: BP 142/71
[2018-12-02 19:24] VITALS: BP 151/67
[2018-12-03 08:00] VITALS: BP 129/65
--- NOTE | 2018-12-03 17:30 | PN ---
PATIENT:RAZIA HUERTA MEDICAL RECORD: [id number] LOCATION:MELI Thomson112 ADMISSION DATE: 11/13/18 PROGRESS NOTE DATE OF SERVICE: 12/02/2018 SUBJECTIVE: The patient's case was discussed with staff. She has no new complaint. OBJECTIVE: The patient says that she wants to live here. She has been told and was told again that she cannot. She says that if she has to leave here she is going to kill herself. When questioned about why she wants to live here she says that she feels comfortable. She likes the nurses. She wants to stay here at this hospital and live. Interestingly, when she first arrived here, she did not want to be here and wanted to go back to the [facility]. Now it seems she settled here. When repeatedly asked if she really means what she is saying or is she just angry and frustrated she tells me flatly that she will kill herself if she has to leave here. ASSESSMENT: No change in diagnoses. 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 This is not depression. I do not think she is truly a serious risk to harm herself, but she is saying she will. I plan to discuss the situation with the treatment team tomorrow and certainly all options are on the table except the fact that she cannot live here in the hospital. One option may be to attempt to transfer her to the [facility] for long-term [facility]. I am not sure they would take her given her advanced age and debilitated condition, but clearly she cannot go to any [facility] if she is going to say what she is saying currently. I do not think that this is likely to be helped with pharmacology. 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 The patient's granddaughter when told about the incident yesterday said she was not surprised that sounds like something her grandmother would do. I do not think she is a serious risk to harm herself, but I cannot discharge her and the ch[facility] will not take her when she is saying this. It is a true dilemma and again tomorrow I will discuss it with the full treatment team. TRANSINT:[id number] Voice Confirmation ID: [id number] DOCUMENT ID: [id number] FELICAINO CLEMENTE MD at 1730 CC: [id number] DICTATION DATE: 12/02/18 1217 APPLICATION DEVELOPMENT INTERN: 12/02/18 2202 ADM IN [facility] [address] [place] [address]
[2018-12-03 21:09] VITALS: BP 131/62
[2018-12-04 09:04] VITALS: BP 139/59
--- NOTE | 2018-12-04 15:00 | PN ---
PATIENT:RAZIA HUERTA MEDICAL RECORD: [id number] LOCATION:MELI [facility]112 ADMISSION DATE: 11/13/18 PROGRESS NOTE DATE OF SERVICE: 12/03/2018 SUBJECTIVE: The patient's case was discussed with staff. She has no new complaint. OBJECTIVE: The patient denies intent to harm herself or others. She generally tolerates her medicines well. ASSESSMENT: No change in diagnoses. PLAN: Current medicines have been reviewed and will be maintained. The patient still insists she wants to live here, and when I firmly tell her she cannot, she wants to know why I do not like her and cries. She does not say she wants to hurt herself. TRANSINT:[id number] Voice Confirmation ID: [id number] DOCUMENT ID: [id number] FELICIANO CLEMENTE MD at 1500 CC: [id number] DICTATION DATE: 12/03/18 1742 TEXTILE ENGINEER: 12/03/18 1832 ADM IN [id number] [place] [address]
[2018-12-04 19:34] VITALS: BP 162/79
[2018-12-05 08:10] VITALS: BP 132/64
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
== END 2018-12-05 13:35 | DRG 57 ==
LOC: D.PSYCH 14:16
PROVIDERS: Family Medicine; ADMIT Psychiatry & Neurology Psychiatry
DX: G30.1 Alzheimer's disease with late onset (principal); F02.81 Dementia in other diseases classified elsewhere, unspecified severity, with behavioral disturbance; N39.0 Urinary tract infection, site not specified; E11.9 Type 2 diabetes mellitus without complications; I10 Essential (primary) hypertension; R26.9 Unspecified abnormalities of gait and mobility; F41.9 Anxiety disorder, unspecified; E55.9 Vitamin D deficiency, unspecified; E53.8 Deficiency of other specified B group vitamins; B96.20 Unspecified Escherichia coli [E. coli] as the cause of diseases classified elsewhere

== ENCOUNTER 2018-12-24 19:03 | Inpatient (IN) | payer MEDICARE ==
[~2018-12-24] VITALS: Ht 160 cm; Wt 73.9 kg
[~2018-12-24 19:03] MED LIST changes: +ASPIRIN81 MG PO; +BUMEX2 MG PO; +BUSPAR5 MG PO; +FLORAJEN3 CAPS460 MG PO; +K-DUR20 MEQ PO; +VITAMIN B-121000 MCG PO
[2018-12-24] MEDS ORDERED: COLACE100 MG PO (20:08)
--- NOTE | 2018-12-24 23:41 | NUR ---
DOMINIQUE ARRIVED VIA EMS AND STREACHER AT 19:45, CALM AND COOPERATIVE, VSS BP 137/67, T 98.0, P 68, R 18, O2 98%, AGGRESSION AT [facility], CODE WOR IS CORY, TELEPHONE CONSENT FROM EUN HAMLIN GUARDIAN, ORIENTED TO ROOM, WILL CONTINUE TO MONITOR, PHYSICIAN AWARE OF ARRIVAL.
[2018-12-25 02:07] VITALS: BP 137/67; BMI 29.0
[2018-12-25 07:42] LABS: BASOPHILS 0.1 % (0-2); EOSINOPHILS 1.2 % (0-7); HEMATOCRIT 41.8 % (36.0-48.0); HEMOGLOBIN 13.6 g/dL (12-16); IMMATURE GRANULOCYTES 0.2 % (0-5); LYMPHOCYTES 15.1 % (15-50); MCH 28.6 pg (26.0-34.0); MCHC 32.5 g/dL (31.0-37.0); MCV 87.8 fL (80.0-100.0); MEAN PLATELET VOLUME 10.2 fL (7.4-10.4); MONOCYTES 9.8 % (2-11); NEUTROPHILS 73.6 % (40-80); PLATELET COUNT 272 10x3/uL (130-400); RBC 4.76 10x6/uL (4.00-5.40); RDW 14.3 % (11.5-14.5); WBC 8.2 10x3/uL (4.8-10.8)
[2018-12-25 08:12] VITALS: BMI 28.9
[2018-12-25 08:14] LABS: ALBUMIN 3.3 g/dL (3.4-5.0); ALKALINE PHOSPHATASE 94 U/L (46-116); ALT (SGPT) 28 U/L (10-68); CALC OSMOLALITY 283 mosm/kg (275-300); CALCIUM 8.9 mg/dL (8.5-10.1); CARBON DIOXIDE 25.8 mmol/L (21.0-32.0); CHLORIDE - SERUM 105 mmol/L (98-107); CHOL - HDL RATIO 3.6 ratio (2.3-4.1); CHOLESTEROL, TOTAL 178 mg/dL (0-200); CREATININE - SERUM 0.7 mg/dL (0.6-1.3); GLUCOSE 126 mg/dL (74-106); HDL CHOLESTEROL 49 mg/dL (32-96); LDL CHOLESTEROL 99 mg/dL (0-100); POTASSIUM - SERUM 3.9 mmol/L (3.5-5.1); PROTEIN - SERUM 7.2 g/dL (6.4-8.2); SODIUM 142 mmol/L (136-145); THYROID STIMULATING HORMONE 0.85 uIU/mL (0.36-3.74); TRIGLYCERIDE 152 mg/dL (30-200); UREA NITROGEN 10 mg/dL (7-18); eGFR NON AFRICAN AMERICAN 83 mL/min (90-120)
[2018-12-25 09:43] VITALS: BP 136/68
--- NOTE | 2018-12-25 10:00 | NUR ---
RECEIVED PATIENT IN DINING ROOM FOR B'FAST, ALERT, SLIGHTLY RESTLESS, QUITE NEGATIVE AND MANIPULATIVE. MEDS ADMIN PER ORDERS WITH COMPLETE MED COMPLIANCE NOTED. UNCOOPERATIVE AND BELLIGERANT AT TIMES. CONT POC INCLUDING MEDS AND GROUP THERAPY DIRECTED.
[2018-12-25 14:20] VITALS: BMI 28.8
[2018-12-25 20:00] VITALS: BP 117/52
--- NOTE | 2018-12-26 04:44 | NUR ---
B) Patient is alert and oriented to person and being in a hospital, confused at times. I) Administered scheduled medications as orderred, monitored for safety R) Mediation compliant, no change in behaviors P) Continue plan of care.
[2018-12-26 05:42] VITALS: BP 153/79
[2018-12-26 06:15] LABS: VITAMIN D 25 HYDROXY 46.8 ng/mL (30.0-100.0)
[2018-12-26 07:33] LABS: RAPID PLASMA REAGIN Non Reactive (Non Reactive)
[2018-12-26 08:20] LABS: FOLATE (FOLIC ACID) - SERUM 10.1 ng/mL (>3.0)
[2018-12-26 09:48] LABS: APPEARANCE HAZY (CLEAR); BILIRUBIN NEGATIVE (NEGATIVE); COLOR YELLOW (YELLOW); GLUCOSE NEGATIVE (NEGATIVE); KETONE NEGATIVE (NEGATIVE); NITRITE NEGATIVE (NEGATIVE); PH 5.5 (5.0-6.0); PROTEIN NEGATIVE (NEGATIVE); UROBILINOGEN NORMAL (NORMAL)
[2018-12-26 09:52] LABS: BACTERIA MODERATE /hpf (NONE SEEN); EPITHELIAL CELLS 0-5 /hpf (0-5); RED CELLS - URINE OCC /hpf (0-5); WHITE CELLS - URINE 25-50 /hpf (0-5)
[2018-12-26 09:53] LABS: AMORPHOUS SEDIMENT <1+ /lpf (NONE SEEN); MUCUS <1+ /lpf (NONE SEEN)
--- NOTE | 2018-12-26 11:56 | NUR ---
B) The patient is awake, she is confused she has poor insight into her situation. She ambulates with a walker. She is [place]MI[place]. She has not shown any aggression today. I) Provide prescribed meds, encourage activities and groups. R) The patient is compliant with meds, she does ask about them, but she takes them. P) Continue POC.
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
[2018-12-26 19:59] VITALS: BP 145/71
--- NOTE | 2018-12-26 20:02 | NUR ---
PATIENT IS AGITATED, PATIENT IS ABLE TO MAKE NEEDS KNOWN. PATIENT IS VERY WORRIED TONIGHT AND STATES, "I HAVE A LOT ON MY MIND". CONSOLED PATIENT AND ENCOURAGED HER TO TALK, HOWEVER SHE DID NOT. NO ADVERSE REACTION NOTED. WILL FOLLOW POC
[2018-12-27 08:00] VITALS: BP 117/16
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
--- NOTE | 2018-12-27 12:11 | PN ---
PATIENT:RAZIA HUERTA MEDICAL RECORD: [id number] LOCATION:[facility] ADMISSION DATE: 12/24/18 PROGRESS NOTE DATE OF SERVICE: 12/26/2018 SUBJECTIVE: The patient's case was discussed with staff. She has no new complaint. OBJECTIVE: The patient denies intent to harm herself or others. She generally is tolerating her medicines well. She engages in some attention seeking behavior, but has not been significantly disruptive in any way that is unmanageable. ASSESSMENT: No change in diagnoses. PLAN: The patient does have a urinary tract infection. This may have accounted for some of the problems at the [facility]. Otherwise, I think she is at or near her baseline level of functioning and if they are unable to manage occasional behavior outbursts, a different setting should be sought. She will have occasional behavior outbursts and that is not something that can be reasonably medicated. It must be dealt with in individualized setting as it comes up with behavioral interventions. TRANSINT:[id number] Voice Confirmation ID: [id number] DOCUMENT ID: [id number] FELICIANO CLEMENTE MD at 1211 CC: [id number] DICTATION DATE: 12/26/18 1552 AIR BRUSH ARTIST: 12/26/182013 ADM IN [facility] [address] [place] [address]
--- NOTE | 2018-12-27 16:32 | NUR ---
The patient c/o a headache and she rates it 8/10. Tylenol ES 1000 mg PO given now.
--- NOTE | 2018-12-27 19:23 | NUR ---
PATIENT IS CONFUSED TO TIME, SITUATION AND REASON FOR BEING HERE. ORIENTED TO SELF, ABLE TO MAKE NEEDS KNOWN, AMBULATES WITH WALKER, COMPLIANT WITH MEDS, NO ADVERSE REACTION NOTED. WILL FOLLOW POC
--- NOTE | 2018-12-28 07:30 | NUR ---
REC'D PT IN HALLWAY SITTING IN CHAIR. ALERT TO PERSON ONLY. PT. CALM AND COOPERATIVE WITH ASSESSMENT. NO AGGRESSION NOTED. REDIRECT AND REORIENT NEEDED. FALL PRECAUTIONS IN PLACE. WILL CONTINUE TO MONITOR Q 15 MINUTES FOR SAFETY. WILL CPOC.
[2018-12-28 07:42] VITALS: BP 121/69
--- NOTE | 2018-12-28 11:54 | PN ---
PATIENT:RAZIA HUERTA MEDICAL RECORD: [id number] LOCATION:[facility] ADMISSION DATE: 12/24/18 PROGRESS NOTE DATE OF SERVICE: 12/27/2018 SUBJECTIVE: The patient's case was discussed with staff. She has no new complaint. OBJECTIVE: The patient is very anxious and intrusive in a delusional way. She is expressing a high degree of distress and wanting assistance, but she has a very low degree of specificity about what is wrong and how she can be helped. It is frustrating to interact with her under those circumstances, but I am sure it is much more frustrating for her since she is wanting some kind of assistance, but cannot really explain what she needs. ASSESSMENT: No change in diagnoses. PLAN: The patient will be given a slightly higher dose of Klonopin. Her long-term prognosis is guarded. TRANSINT:[id number] Voice Confirmation ID: [id number] DOCUMENT ID: [id number] FELICIANO CLEMENTE MD at 1154 CC: [id number] DICTATION DATE: 12/27/18 1220 MANUFACTURER'S REPRESENTATIVE: 12/27/18 1357 ADM IN [facility] [address] [place] [address]
[2018-12-28 21:25] VITALS: BP 124/57
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
--- NOTE | 2018-12-29 07:30 | NUR ---
REC'D PT IN HALLWAY WITH PEERS. AWAKE AND ALERT TO SELF. CALM AND COOPERATIVE WITH ASSESSMENT AT THIS TIME. PT BECOMES VERY AGITATED AT TIMES WHEN REDIRECTED. AFTER SEVERAL ATTEMPTS PT USUALLY CALMS DOWN. ATTENTION SEEKING AT TIMES, CRIES OUT ABOUT HER FAMILY NOT WANTING HER. REDIRECT AND REORIENT NEEDED. PRESCRIBED MEDS PROVIDED. MED COMPLIANT. FALL PRECAUTIONS IN PLACE. WILL CONTINUE TO MONITOR Q 15 MINUTES FOR SAFETY. WILL CPOC.
[2018-12-29 08:11] VITALS: BP 147/72
--- NOTE | 2018-12-29 14:59 | PN ---
PATIENT:RAZIA HUERTA MEDICAL RECORD: [id number] LOCATION:[facility] ADMISSION DATE: 12/24/18 PROGRESS NOTE DATE OF SERVICE: 12/28/2018 SUBJECTIVE: The patient's case was discussed with staff. She has no new complaint. OBJECTIVE: The patient is in good behavioral control with poor insight about her condition. She is attention seeking, but has not been aggressive. ASSESSMENT: No change in diagnoses. PLAN: Current medicines have been reviewed and will be maintained. Long-term prognosis is guarded. TRANSINT:[id number] Voice Confirmation ID: [id number] DOCUMENT ID: [id number] FELICIANO CLEMENTE MD at 1459 CC: [id number] DICTATION DATE: 12/28/18 1155 ASSISTANT CONTROLLER: 12/28/18 1231 ADM IN [facility] [address] [place] [address]
[2018-12-29 21:57] VITALS: BP 150/70
--- NOTE | 2018-12-30 04:36 | NUR ---
RECEIVED IN PATIENT ROOM. RESTING IN BED WITH EYES CLOSED. RESPONDS TO VOICE. CALM AND COOPERATIVE WITH CARE AND ASSESSMENT. NO SIGNS OF AGGRESSION. NO ATTENTION SEEKING BEHAVIORS. REDIRECT AND REORIENT NEEDED. RESTING IN BED WITH EYES CLOSED AT THIS TIME. CONTINUE PLAN OF CARE.
--- NOTE | 2018-12-30 07:30 | NUR ---
REC'D PT IN HALLWAY SITTING IN CHAIR WITH PEERS. AWAKE AND ALERT TO SELF. PT IS DEMANDING AT TIMES. NO AGGRESSION NOTED. CALM AND COOPERATIVE WITH ASSESSMENT. REDIRECT AND REORIENT NEEDED. PRESCRIBED MEDS PROVIDED. MED COMPLIANT. FALL PRECAUTIONS IN PLACE. WILL CONTINUE TO MONITOR Q 15 MINUTES FOR SAFETY. WILL CPOC.
[2018-12-30 08:04] VITALS: BP 119/55
--- NOTE | 2018-12-30 13:57 | PN ---
PATIENT:RAZIA HUERTA MEDICAL RECORD: [id number] LOCATION:[facility] ADMISSION DATE: 12/24/18 PROGRESS NOTE DATE OF SERVICE: 12/29/2018 SUBJECTIVE: The patient's case was discussed with staff. She has no new complaint. OBJECTIVE: The patient is tolerating her medicines reasonably well. She did have an increase in her Klonopin 2 days ago, it does not seem to have had much effect on her so far. I am going to continue it at this dose for another day and may need to increase that a little more. Her long-term prognosis is guarded. TRANSINT:[id number] Voice Confirmation ID: [id number] DOCUMENT ID: [id number] FELICIANO CLEMENTE MD at 1357 CC: [id number] DICTATION DATE: 12/29/18 1643 SAMPLE MAKER HAND: 12/29/18 2233 ADM IN [facility] [address] [place] [address]
[2018-12-30] MEDS ORDERED: LEXAPRO20 MG PO (14:09)
[2018-12-30] MEDS ORDERED: KLONOPIN0.5 MG PO (14:10)
[2018-12-30 20:00] VITALS: BP 137/61
--- NOTE | 2018-12-31 01:00 | NUR ---
RECEIVED IN DAYROOM. SITTING IN RECLINER WITH PEERS AT HER SIDE. CALM AND COOPERATIVE WITH CARE AND ASSESSMENT. NO SIGNS OF AGGRESSION. REDIRECT AND REORIENT NEEDED. RESTING IN BED WITH EYES CLOSED AT THIS TIME. CONTINUE PLAN OF CARE.
--- NOTE | 2018-12-31 07:30 | NUR ---
REC'D PT IN HALLWAY WITH PEERS. AWAKE AND ALERT TO SELF. NO AGGRESSION NOTED. CALM AND COOPERATIVE WITH ASSESSMENT. PRESCRIBED MEDS PROVIDED. MED COMPLIANT. REDIRECT AND REORIENT NEEDED. FALL PRECAUTIONS IN PLACE. WILL CONTINUE TO MONITOR Q 15 MINUTES FOR SAFETY. WILL CPOC.
[2018-12-31 09:56] VITALS: Ht 160 cm; Wt 73.9 kg
[2018-12-31 11:41] VITALS: BP 151/80
--- NOTE | 2018-12-31 13:30 | NUR ---
PT DC'D TO [facility]. PAPERWORK FAXED AND COPY SENT WITH PT. NO S/SX OF DISTRESS NOTED.
--- NOTE | 2018-12-31 16:05 | PN ---
PATIENT:RAZIA HUERTA MEDICAL RECORD: [id number] LOCATION:[facility] ADMISSION DATE: 12/24/18 PROGRESS NOTE DATE OF SERVICE: 12/30/2018 SUBJECTIVE: The patient's case was discussed with staff. She has no new complaint. OBJECTIVE: The patient denies intent to harm herself or others. She generally is tolerating her medicines well, although she continues to engage in a fair amount of attention seeking behavior. I think these behaviors are characteristic of an underlying premorbid personality disorder. She will be monitored for clinical changes associated with her current medicine regimen and I am going to [facility] to the [facility] today. It is just simply a fact that she is going to have periodic behavior outbursts. These are not dangerous. She is not acutely dangerous and her mood state is not going to appreciably change with the use of additional mood stabilizing medications. TRANSINT:[id number] Voice Confirmation ID: [id number] DOCUMENT ID: [id number] FELICIANO CLEMENTE MD at 1605 CC: [id number] DICTATION DATE: 12/30/18 1408 FLORIST: 12/30/18 1428 DIS IN 12/31/18 [facility] [address] [facility]
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
== END 2018-12-31 13:30 | DRG 57 ==
LOC: D.PSYCH 19:03
PROVIDERS: ADMIT Psychiatry & Neurology Psychiatry
DX: G30.1 Alzheimer's disease with late onset (principal); F02.81 Dementia in other diseases classified elsewhere, unspecified severity, with behavioral disturbance; N39.0 Urinary tract infection, site not specified; E11.9 Type 2 diabetes mellitus without complications; I10 Essential (primary) hypertension; F41.9 Anxiety disorder, unspecified; F32.9 Major depressive disorder, single episode, unspecified; E78.49 Other hyperlipidemia; Z74.09 Other reduced mobility; M19.90 Unspecified osteoarthritis, unspecified site; E53.8 Deficiency of other specified B group vitamins; E55.9 Vitamin D deficiency, unspecified; K59.09 Other constipation